=== PATIENT | female | born 1945 | race Caucasian/White ===

== ENCOUNTER → 2016-05-18 | Outpatient (CLI) | payer BC ==
[~2016-05-18] VITALS: Ht 152.4 cm; Wt 65.8 kg
[~2016-05-18] MED LIST: ASPI1TAB24 PO; CALC600T57 PO; LETR2.5T PO; LIDOCAINE 2% INJ 100 MG/5 ML SDV (FOR ANES.) As Ordered ONE; LISI-538 PO; LOVA40TA PO; NS 1,000 ML IV SCH; PRIL20CA9 PO; PROPOFOL 200 MG/20 ML VIAL As Ordered ONE; TRIA37.53 PO; VITA200016 PO; ePHEDrine SULFATE 25 MG/5 ML(5MG/ML) SYRINGE As Ordered ONE
--- NOTE | 2016-05-18 12:29 | ROOR ---
Patient Name: Sandra Riggs Procedure Date: 05/18/2016 12:06 PM Date of : 1945 Age: 70 Room: [facility] Gender: Female Note Status: Finalized Procedure: Colonoscopy to Cecum Indications: Screening for colorectal malignant neoplasm Providers: Te Calzada MD Referring MD: New George MD Requesting Provider: Medicines: Monitored Anesthesia Care Complications: No immediate complications. Procedure: Pre-Anesthesia Assessment: - The heart rate, respiratory rate, oxygen saturations, blood pressure, adequacy of pulmonary ventilation, and response to care were monitored throughout the procedure. The Colonoscope was introduced through the anus and advanced to the cecum, identified by appendiceal orifice and ileocecal valve. The colonoscopy was performed without difficulty. The patient tolerated the procedure well. The quality of the bowel preparation was excellent. Findings: The perianal and digital rectal examinations were normal. Non-bleeding internal hemorrhoids were found during retroflexion. The hemorrhoids were small and Grade I (internal hemorrhoids that do not prolapse). Multiple small and large-mouthed diverticula were found in the recto-sigmoid colon, sigmoid colon and descending colon. The exam was otherwise without abnormality on direct and retroflexion views. Impression: - Non-bleeding internal hemorrhoids. - Diverticulosis in the recto-sigmoid colon, in the sigmoid colon and in the descending colon. - The examination was otherwise normal on direct and retroflexion views. - No specimens collected. - The exam was otherwise normal to the cecum. Recommendation: - Patient has a contact number available for emergencies. The signs and symptoms of potential delayed complications were discussed with the patient. Return to normal activities tomorrow. Written discharge instructions were provided to the patient. - High fiber diet. - Discharge patient to home. - Continue present medications. - Repeat colonoscopy is not recommended for screening purposes. - Return to referring physician. - The findings and recommendations were discussed with the patient's family. Te Calzada MD Te Calzada MD 05/18/2016 12:29:13 PM This report has been signed electronically. Number of Addenda: 0 Note Initiated On: 05/18/2016 12:06 PM Estimated Blood Loss: Estimated blood loss: none.
[2016-05-18 12:55] VITALS: BP 114/56
== END ==
LOC: M OPP 11:34
PROVIDERS: ATTEND Internal Medicine Gastroenterology
DX: Z12.11 Encounter for screening for malignant neoplasm of colon (principal); K64.0 First degree hemorrhoids; K57.30 Diverticulosis of large intestine without perforation or abscess without bleeding; I10 Essential (primary) hypertension; E78.00 Pure hypercholesterolemia, unspecified; K21.9 Gastro-esophageal reflux disease without esophagitis; M54.9 Dorsalgia, unspecified; M54.2 Cervicalgia; Z85.3 Personal history of malignant neoplasm of breast; Z79.82 Long term (current) use of aspirin; Z79.899 Other long term (current) drug therapy; Z88.8 Allergy status to other drugs, medicaments and biological substances; Z88.5 Allergy status to narcotic agent
CPT/HCPCS: 99156; 99157; G0121

== ENCOUNTER → 2016-05-25 | Outpatient (CLI) | payer BC ==
[~2016-05-25] MED LIST changes: -LIDOCAINE 2% INJ 100 MG/5 ML SDV (FOR ANES.) As Ordered ONE; -NS 1,000 ML IV SCH; -PROPOFOL 200 MG/20 ML VIAL As Ordered ONE; -ePHEDrine SULFATE 25 MG/5 ML(5MG/ML) SYRINGE As Ordered ONE
--- NOTE | 2016-05-25 09:18 | REPMRS ---
Patient History The patient states she had a clinical breast exam in 2016. Patient is postmenopausal and has history of breast cancer at age 69. Family history of breast cancer in maternal cousin at age 50 or over. Malignant radio exam breast specimen, May 25, 2015. 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 Benign radio exam breast specimen of the right breast, April 30, 2015. Benign stereotatic loc for ea lesion of the right breast, April 30, 2015. Benign excisional biopsy of the right breast, 2000. Taking unspecified hormones for 5 months. Digital Mammo Screening Bilat: May 25, 2016 - Exam #: [id number] Bilateral CC and MLO view(s) were taken. Technologist: Lilliam Lopez Technologist Prior study comparison: December 08, 2015, right breast digital mammo diagnostic unilateral performed at [facility]. March 19, 2015, right breast digital mammo diagnostic unilateral performed at [facility]. FINDINGS: There are scattered fibroglandular densities. There is a mild amount of residual fibroglandular tissue which is fairly symmetric. There is no interval development of dominant mass, architectural distortion, or clustered microcalcification suggestive of malignancy. Large coarse benign appearing calcifications are present. ASSESSMENT: BI-RADS/ACR category 1 mammogram. Negative. Recommendation Routine screening mammogram in 1 year (for women over age 40). This mammogram was interpreted with the aid of an FDA-approved computer-aided dectection system. Electronically Signed By: George Curran MD 05/25/16 0918
== END ==
LOC: M RAD 08:36
PROVIDERS: ATTEND Family Medicine
DX: Z12.31 Encounter for screening mammogram for malignant neoplasm of breast (principal); Z78.0 Asymptomatic menopausal state; Z80.3 Family history of malignant neoplasm of breast; Z85.3 Personal history of malignant neoplasm of breast; Z92.29 Personal history of other drug therapy

== ENCOUNTER → 2016-12-02 | Outpatient (CLI) | payer BC ==
[~2016-12-02] MED LIST changes: +ASPI-161 PO; -ASPI1TAB24 PO; -LETR2.5T PO; +LETR2.5T2 PO; +VALI5TAB PO
[2016-12-02 08:49] LABS: MEAN CORPUSCULAR HEMOGLOBIN 29.7 pg (27.0-33.0); MEAN CORPUSCULAR HGB CONC 33.2 g/dl (32.0-36.5); MEAN CORPUSCULAR VOLUME 89.3 fl (80.0-96.0); RED CELL DISTRIBUTION WIDTH 12.7 % (11.5-14.5); WHITE BLOOD COUNT 6.5 K/mm3 (4.0-10.0)
[2016-12-02 09:01] LABS: ALBUMIN 3.6 GM/DL (3.2-5.2); ALBUMIN/GLOBULIN RATIO 1.06 (1.00-1.93); ALKALINE PHOSPHATASE 50 U/L (45-117); ALT/SGPT 18 U/L (12-78); ANION GAP 8 MEQ/L (8-16); AST/SGOT 12 U/L (15-37); BILIRUBIN,TOTAL 0.5 MG/DL (0.2-1.0); BLOOD UREA NITROGEN 17 MG/DL (7-18); CALCIUM LEVEL 9.6 MG/DL (8.8-10.2); CARBON DIOXIDE LEVEL 30 MEQ/L (21-32); CHLORIDE LEVEL 107 MEQ/L (98-107); CHOLESTEROL LEVEL 171 MG/DL (<200); CREATININE FOR GFR 0.79 MG/DL (0.55-1.02); GLOMERULAR FILTRATION RATE > 60.0 (>39); GLUCOSE, FASTING 88 MG/DL (83-110); POTASSIUM SERUM 4.3 MEQ/L (3.5-5.1); SODIUM LEVEL 145 MEQ/L (136-145); TRIGLYCERIDES LEVEL 146 MG/DL (<150)
== END ==
LOC: M LAB 07:32
PROVIDERS: ATTEND Family Medicine
DX: Z85.3 Personal history of malignant neoplasm of breast (principal); E78.2 Mixed hyperlipidemia; M81.0 Age-related osteoporosis without current pathological fracture; E55.9 Vitamin D deficiency, unspecified

== ENCOUNTER → 2017-02-20 | Outpatient (CLI) | payer BC ==
--- NOTE | 2017-02-21 09:49 | DEXA ---
AP SPINE L1 - L4 1.316 1.0 2.7 LT FEMUR TOTAL 0.819 -1.5 0.1 RT FEMUR TOTAL 0.770 -1.9 -0.3 TOTAL BODY TOTAL OTHER COMMENTS: Normal bone densitometry of the spine. There is low bone density of the left hip based on femoral neck T score -2.2. There is osteoporosis of the right hip based on femoral neck T score -2.7. There is degenerative change in the spine which may artificially elevate the BMD. The increased density of the spine does represent a significant change since . The increased density of the left hip does represent a significant change since 03/17/2016. The increased density of the right hip does represent a significant change. The density of the spine has increased 9.7% since the initial exam on 01/2001. The spine density has increased 8.2% since the most recent exam on 02/2016. The density of the left hip has decreased 6.8% since the initial exam on 2000. The density of the left hip has increased 1.5% since the most recent exam on 2015. The density of the right hip has decreased 8.1% since the initial exam on 2000. The density of the right hip has increased or 4.9% since the most recent exam on 02/2016. FOLLOW-UP: Recommendation for the next bone density exam: 2 years. ERIC
== END ==
LOC: M WHC 07:58
PROVIDERS: ATTEND Nurse Practitioner Family
DX: Z13.820 Encounter for screening for osteoporosis (principal); M85.9 Disorder of bone density and structure, unspecified

== ENCOUNTER → 2017-04-14 | Outpatient (REF) | payer BC | LOC: M SFHCWAGY 14:53 | DX: Z12.4 Encounter for screening for malignant neoplasm of cervix (principal) | CPT/HCPCS: G0123 ==

== ENCOUNTER → 2017-05-26 | Outpatient (CLI) | payer BC | LOC: M RAD 10:50 | DX: Z12.31 Encounter for screening mammogram for malignant neoplasm of breast (principal) | CPT/HCPCS: 77067 ==

== ENCOUNTER → 2017-12-04 | Outpatient (CLI) | payer BC ==
[2017-12-04 07:46] LABS: HEMATOCRIT 36.2 % (36.0-47.0); HEMOGLOBIN 11.8 g/dl (12.0-15.5); MEAN CORPUSCULAR HEMOGLOBIN 28.6 pg (27.0-33.0); MEAN CORPUSCULAR HGB CONC 32.6 g/dl (32.0-36.5); MEAN CORPUSCULAR VOLUME 87.7 fl (80.0-96.0); PLATELET COUNT, AUTOMATED 270 10^3/uL (150-450); RED BLOOD COUNT 4.13 10^6/uL (4.00-5.40); RED CELL DISTRIBUTION WIDTH 13.2 % (11.5-14.5); WHITE BLOOD COUNT 6.2 10^3/uL (4.0-10.0)
[2017-12-04 08:14] LABS: ALBUMIN 3.7 GM/DL (3.2-5.2); ALBUMIN/GLOBULIN RATIO 1.06 (1.00-1.93); ALKALINE PHOSPHATASE 44 U/L (45-117); ALT/SGPT 19 U/L (12-78); ANION GAP 12 MEQ/L (8-16); AST/SGOT 15 U/L (7-37); BILIRUBIN,TOTAL 0.4 MG/DL (0.2-1.0); BLOOD UREA NITROGEN 17 MG/DL (7-18); CALCIUM LEVEL 9.8 MG/DL (8.8-10.2); CARBON DIOXIDE LEVEL 26 MEQ/L (21-32); CHLORIDE LEVEL 106 MEQ/L (98-107); CHOLESTEROL LEVEL 155 MG/DL (<200); CHOLESTEROL RISK RATIO 2.767 (<5); GLOMERULAR FILTRATION RATE > 60.0 (>39); GLUCOSE, FASTING 88 MG/DL (70-100); HDL CHOLESTEROL 56 MG/DL (>40); LDL CHOLESTEROL 73 MG/DL (<100); NON-HDL-C 99 MG/DL; POTASSIUM SERUM 3.9 MEQ/L (3.5-5.1); SODIUM LEVEL 144 MEQ/L (136-145); TOTAL PROTEIN 7.2 GM/DL (6.4-8.2); TRIGLYCERIDES LEVEL 130 MG/DL (<150)
== END ==
LOC: M LAB 06:52
DX: K21.0 Gastro-esophageal reflux disease with esophagitis (principal); I10 Essential (primary) hypertension; E78.2 Mixed hyperlipidemia
CPT/HCPCS: 80053

== ENCOUNTER → 2018-02-16 | Outpatient (REF) | payer BC | LOC: M SFHCPLAZ 17:41 | DX: D23.39 Other benign neoplasm of skin of other parts of face (principal) | CPT/HCPCS: 88305 ==

== ENCOUNTER → 2018-02-21 | Outpatient (CLI) | payer BC | LOC: M WHC 10:26 | DX: M81.0 Age-related osteoporosis without current pathological fracture (principal); M85.852 Other specified disorders of bone density and structure, left thigh | CPT/HCPCS: 77080 ==

== ENCOUNTER → 2018-05-28 | Outpatient (CLI) | payer BC ==
[~2018-05-28] MED LIST changes: +ALEN70TA57 OR
--- NOTE | 2018-05-28 14:29 | REPMRS ---
Patient History The patient states she had a clinical breast exam in 2018. Family history of breast cancer at age 50 or over in maternal cousin. Malignant radio exam breast specimen, May 25, 2015. 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 Benign radio exam breast specimen of the right breast, April 30, 2015. Benign stereotatic loc for ea lesion of the right breast, April 30, 2015. Benign excisional biopsy of the right breast, 2000. Taking tamoxifen for 1 year. Taking unspecified hormones for 5 months. Digital Mammo Screening Bilat: May 28, 2018 - Exam #: [id number] Bilateral CC and MLO view(s) were taken. Technologist: Desirae Ventura, Technologist Prior study comparison: May 26, 2017, bilateral digital mammo screening bilat performed at [facility]. May 25, 2016, bilateral digital mammo screening bilat performed at [facility]. FINDINGS: There are scattered fibroglandular densities. There has been no change in the appearance of the mammogram from the prior studies. There is a moderate amount of residual fibroglandular tissue which is fairly symmetric. There is no interval development of dominant mass, architectural distortion, or clustered microcalcification suggestive of malignancy. There are scattered, small, benign calcifications of doubtful clinical significance. Large coarse benign appearing calcifications are present. There are benign arterial calcifications noted. 3-D tomosynthesis shows no additional findings. No significant changes when compared with prior studies. Assessment: BI-RADS/ACR category 2 mammogram. Benign Findings. Recommendation Routine screening mammogram in 1 year (for women over age 40). This mammogram was interpreted with the aid of an FDA-approved computer-aided dectection system. A. Negative x-ray reports should not delay biopsy if a dominant or clinically suspicious mass is present. B. Four to eight percent of cancers are not identified by mammography. C. Adenosis and dense breast may obscure an underlying neoplasm. Electronically Signed By: Lasha Nur MD 05/28/18 [id number]
== END ==
LOC: M RAD 10:22
PROVIDERS: ATTEND Nurse Practitioner Family
DX: Z12.31 Encounter for screening mammogram for malignant neoplasm of breast (principal); M81.0 Age-related osteoporosis without current pathological fracture; Z80.3 Family history of malignant neoplasm of breast; Z85.3 Personal history of malignant neoplasm of breast

== ENCOUNTER → 2018-06-18 | Outpatient (CLI) | payer BC ==
[2018-06-18 08:11] LABS: HEMATOCRIT 37.5 % (36.0-47.0); HEMOGLOBIN 12.1 g/dl (12.0-15.5); MEAN CORPUSCULAR HEMOGLOBIN 28.1 pg (27.0-33.0); MEAN CORPUSCULAR HGB CONC 32.3 g/dl (32.0-36.5); PLATELET COUNT, AUTOMATED 269 10^3/uL (150-450); RED BLOOD COUNT 4.31 10^6/uL (4.00-5.40); WHITE BLOOD COUNT 6.4 10^3/uL (4.0-10.0)
[2018-06-18 11:30] LABS: PERCENT SATURATION 14.5 % (13.2-45.0)
== END ==
LOC: M LAB 07:15
PROVIDERS: ATTEND Family Medicine
DX: D64.9 Anemia, unspecified (principal)

== ENCOUNTER → 2018-12-31 | Outpatient (CLI) | payer BC ==
[~2018-12-31] MED LIST changes: -ALEN70TA57 OR; +ALEN70TA74 OR; +MULT1TAB50 PO; +TRIA1CR80 TOP
[2018-12-31 08:14] LABS: HEMATOCRIT 37.2 % (36.0-47.0); HEMOGLOBIN 11.8 g/dl (12.0-15.5); MEAN CORPUSCULAR HEMOGLOBIN 28.3 pg (27.0-33.0); MEAN CORPUSCULAR HGB CONC 31.7 g/dl (32.0-36.5); MEAN CORPUSCULAR VOLUME 89.2 fl (80.0-96.0); PLATELET COUNT, AUTOMATED 265 10^3/uL (150-450); RED BLOOD COUNT 4.17 10^6/uL (4.00-5.40); WHITE BLOOD COUNT 5.7 10^3/uL (4.0-10.0)
[2018-12-31 08:36] LABS: ALBUMIN 3.6 GM/DL (3.2-5.2); BILIRUBIN,TOTAL 0.3 MG/DL (0.2-1.0); CALCIUM LEVEL 10.1 MG/DL (8.8-10.2); CREATININE FOR GFR 1.16 MG/DL (0.55-1.30); GLOMERULAR FILTRATION RATE 48.6 (>39); POTASSIUM SERUM 4.2 MEQ/L (3.5-5.1); TOTAL PROTEIN 6.9 GM/DL (6.4-8.2)
== END ==
LOC: M LAB 06:37
PROVIDERS: ATTEND Family Medicine
DX: E61.1 Iron deficiency (principal); I10 Essential (primary) hypertension; E78.2 Mixed hyperlipidemia

== ENCOUNTER → 2019-02-28 | Outpatient (CLI) | payer BC | LOC: M WHC 10:29 | PROVIDERS: ATTEND Nurse Practitioner Family | DX: M81.0 Age-related osteoporosis without current pathological fracture (principal) ==

== ENCOUNTER → 2019-03-11 | Outpatient (REF) | payer BC | LOC: M LAB REF 18:19 | PROVIDERS: ATTEND Dermatology | DX: L81.9 Disorder of pigmentation, unspecified (principal) ==

== ENCOUNTER → 2019-05-30 | Outpatient (CLI) | payer BC ==
--- NOTE | 2019-05-30 11:52 | REPMRS ---
Patient History The patient states she had a clinical breast exam in 2018. Family history of breast cancer at age 50 or over in maternal cousin. Malignant radio exam breast specimen, May 25, 2015. 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 Benign radio exam breast specimen of the right breast, April 30, 2015. Benign stereotatic loc for ea lesion of the right breast, April 30, 2015. Benign excisional biopsy of the right breast, 2000. Taking tamoxifen for 1 year. Taking unspecified hormones for 5 months. Digital Woman Screen Mammo: May 30, 2019 - Exam #: [id number] Bilateral CC and MLO view(s) were taken. Technologist: Katrina Verduzco, Technologist Prior study comparison: May 28, 2018, bilateral digital mammo screening bilat, performed at [facility]. May 26, 2017, bilateral digital mammo screening bilat, performed at [facility]. May 25, 2016, bilateral digital mammo screening bilat, performed at [facility]. FINDINGS: There are scattered fibroglandular densities. There are stable post treatment changes in the right breast. There has been no change in the appearance of the mammogram from the prior studies. There is a mild amount of scattered fibroglandular density which is fairly symmetric. There is no interval development of dominant mass, architectural distortion, or grouped microcalcification suggestive of malignancy. 3-D tomosynthesis shows no additional findings. Assessment: BI-RADS/ACR category 2 mammogram. Benign Findings. Recommendation Routine screening mammogram of both breasts in 1 year (for women over age 40). This mammogram was interpreted with the aid of an FDA-approved computer-aided dectection system. Electronically Signed By: Kiet Warner MD 05/30/19 [id number]
== END ==
LOC: M WHC 10:49
PROVIDERS: ATTEND Nurse Practitioner Family
DX: Z12.31 Encounter for screening mammogram for malignant neoplasm of breast (principal); Z85.3 Personal history of malignant neoplasm of breast; Z80.3 Family history of malignant neoplasm of breast

== ENCOUNTER → 2020-02-11 | Outpatient (REF) | payer BC | LOC: M LAB REF 13:48 | PROVIDERS: ATTEND Dermatology | DX: D49.2 Neoplasm of unspecified behavior of bone, soft tissue, and skin (principal) ==

== ENCOUNTER → 2020-02-12 | Outpatient (CLI) | payer BC ==
[2020-02-12 07:46] LABS: ALBUMIN 3.8 GM/DL (3.2-5.2); ALT/SGPT 22 U/L (12-78); BILIRUBIN,TOTAL 0.4 MG/DL (0.2-1.0); BLOOD UREA NITROGEN 19 MG/DL (7-18); CALCIUM LEVEL 10.2 MG/DL (8.8-10.2); CARBON DIOXIDE LEVEL 32 MEQ/L (21-32); CHLORIDE LEVEL 106 MEQ/L (98-107); CHOLESTEROL LEVEL 198 MG/DL (<200); CHOLESTEROL RISK RATIO 3.142 (<5); CREATININE FOR GFR 0.93 MG/DL (0.55-1.30); GLOMERULAR FILTRATION RATE > 60.0 (>39); GLUCOSE, FASTING 93 MG/DL (70-100); HDL CHOLESTEROL 63 MG/DL (>40); LDL CHOLESTEROL 110 MG/DL (<100); NON-HDL-C 135 MG/DL; POTASSIUM SERUM 3.8 MEQ/L (3.5-5.1); SODIUM LEVEL 141 MEQ/L (136-145); TOTAL PROTEIN 7.2 GM/DL (6.4-8.2); TRIGLYCERIDES LEVEL 123 MG/DL (<150)
== END ==
LOC: M LAB 06:40
PROVIDERS: ATTEND Family Medicine
DX: E78.5 Hyperlipidemia, unspecified (principal); I11.9 Hypertensive heart disease without heart failure

== ENCOUNTER → 2020-06-01 | Outpatient (CLI) | payer BC ==
[~2020-06-01] MED LIST changes: -ALEN70TA74 OR; +ALEN70TA82 OR; -LISI-538 PO; +LISI20TA33 PO
--- NOTE | 2020-06-01 12:33 | REPMRS ---
Patient History The patient states she had a clinical breast exam in March 2020. Family history of breast cancer at age 50 or over in maternal cousin. Malignant radio exam breast specimen, May 25, 2015. 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 Benign radio exam breast specimen of the right breast, April 30, 2015. Benign stereotatic loc for ea lesion of the right breast, April 30, 2015. Benign excisional biopsy of the right breast, 2000. Taking tamoxifen for 1 year. Taking unspecified hormones for 5 months. Digital Woman Screen Mammo: June 01, 2020 - Exam #: [id number] Bilateral CC and MLO view(s) were taken. Technologist: Lilliam Lopez, Technologist Prior study comparison: May 30, 2019, bilateral digital woman screen mammo performed at [facility]. May 28, 2018, bilateral digital mammo screening bilat, performed at [facility]. May 26, 2017, bilateral digital mammo screening bilat, performed at [facility]. FINDINGS: The breast tissue is heterogeneously dense. This may lower the sensitivity of mammography. The Volpara volumetric breast density category is: C. There is a stable area of fibrosis in the right breast. Stable calcifications are noted on the left. There is a moderate amount of heterogeneously dense fibroglandular tissue which is fairly symmetric. There is no interval development of dominant mass, architectural distortion, or grouped microcalcification typical of malignancy. There has been no change in the appearance of the mammogram from the prior studies. 3-D tomosynthesis shows no additional findings. Assessment: BI-RADS/ACR category 2 mammogram. Benign Findings. Recommendation Routine screening mammogram of both breasts in 1 year (for women over age 40). This mammogram was interpreted with the aid of an FDA-approved computer-aided dectection system. Electronically Signed By: Kiet Warner MD 06/01/20 [id number]
== END ==
LOC: M WHC 10:25
PROVIDERS: ATTEND Internal Medicine Medical Oncology
DX: Z12.31 Encounter for screening mammogram for malignant neoplasm of breast (principal); Z85.3 Personal history of malignant neoplasm of breast; Z80.3 Family history of malignant neoplasm of breast; Z79.890 Hormone replacement therapy

== ENCOUNTER → 2021-03-08 | Outpatient (CLI) | payer BC | LOC: M WHC 12:42 | PROVIDERS: ATTEND Internal Medicine Medical Oncology | DX: Z12.31 Encounter for screening mammogram for malignant neoplasm of breast (principal); M81.0 Age-related osteoporosis without current pathological fracture ==

== ENCOUNTER → 2021-03-24 | Outpatient (CLI) | payer BC ==
[2021-03-24 09:23] LABS: ALBUMIN 3.6 GM/DL (3.2-5.2); ALT/SGPT 22 U/L (12-78); BILIRUBIN,TOTAL 0.4 MG/DL (0.2-1.0); BLOOD UREA NITROGEN 25 MG/DL (7-18); CALCIUM LEVEL 10.2 MG/DL (8.8-10.2); CARBON DIOXIDE LEVEL 27 MEQ/L (21-32); CHLORIDE LEVEL 108 MEQ/L (98-107); CHOLESTEROL LEVEL 186 MG/DL (<200); FREE T4 0.93 NG/DL (0.76-1.46); GLOMERULAR FILTRATION RATE > 60.0 (>39); GLUCOSE, FASTING 88 MG/DL (70-100); HDL CHOLESTEROL 62 MG/DL (>40); LDL CHOLESTEROL 98 MG/DL (<100); NON-HDL-C 124 MG/DL; POTASSIUM SERUM 4.1 MEQ/L (3.5-5.1); SODIUM LEVEL 141 MEQ/L (136-145); TOTAL PROTEIN 6.8 GM/DL (6.4-8.2); TRIGLYCERIDES LEVEL 129 MG/DL (<150)
[2021-03-24 10:09] LABS: TOTAL 25(OH) VITAMIN D 47.3 NG/ML (30.0-100.0)
== END ==
LOC: M LAB 07:16
PROVIDERS: ATTEND Family Medicine
DX: I11.9 Hypertensive heart disease without heart failure (principal)

== ENCOUNTER → 2021-05-31 | Outpatient (REF) | payer BC | LOC: M PLALAB 10:09 | PROVIDERS: ATTEND Specialist | DX: Z01.419 Encounter for gynecological examination (general) (routine) without abnormal findings (principal) ==

== ENCOUNTER → 2021-06-07 | Outpatient (CLI) | payer BC | LOC: M WHC 08:20 | PROVIDERS: ATTEND Internal Medicine Medical Oncology | DX: Z12.31 Encounter for screening mammogram for malignant neoplasm of breast (principal); R92.2 Inconclusive mammogram; M81.0 Age-related osteoporosis without current pathological fracture; Z80.3 Family history of malignant neoplasm of breast; Z79.890 Hormone replacement therapy; Z79.810 Long term (current) use of selective estrogen receptor modulators (SERMs) ==

== ENCOUNTER → 2022-03-22 | Outpatient (REF) | payer BC ==
[~2022-03-22] MED LIST changes: -TRIA37.53 PO; +TRIA37.577 PO
[2022-03-23 13:39] LABS: HEMATOCRIT 40.2 % (36.0-47.0); HEMOGLOBIN 12.9 g/dl (12.0-15.5); MEAN CORPUSCULAR HEMOGLOBIN 29.1 pg (27.0-33.0); MEAN CORPUSCULAR HGB CONC 32.1 g/dl (32.0-36.5); MEAN CORPUSCULAR VOLUME 90.7 fl (80.0-96.0); PLATELET COUNT, AUTOMATED 329 10^3/uL (150-450); RED BLOOD COUNT 4.43 10^6/uL (4.00-5.40); WHITE BLOOD COUNT 7.5 10^3/uL (4.0-10.0)
[2022-03-23 14:07] LABS: ALBUMIN 4.1 G/DL (3.2-5.2); ALKALINE PHOSPHATASE 52 U/L (46-116); ALT/SGPT 17 U/L (7.0-40); AST/SGOT 25 U/L (<34); BILIRUBIN,TOTAL 0.3 MG/DL (0.3-1.2); BLOOD UREA NITROGEN 18 MG/DL (9-23); CALCIUM LEVEL 11.3 MG/DL (8.3-10.6); CARBON DIOXIDE LEVEL 30 MMOL/L (20-31); CHLORIDE LEVEL 101 MMOL/L (98-107); CHOLESTEROL LEVEL 179 MG/DL (<200); CHOLESTEROL RISK RATIO 2.54 (<5); CREATININE FOR GFR 0.78 MG/DL (0.55-1.30); GLOMERULAR FILTRATION RATE > 60.0 (>39); GLUCOSE, FASTING 78 MG/DL (74-106); HDL CHOLESTEROL 70.4 MG/DL (>40); LDL CHOLESTEROL 84.4 MG/DL (<100); NON-HDL-C 109 MG/DL; POTASSIUM SERUM 5.6 MMOL/L (3.5-5.1); SODIUM LEVEL 140 MMOL/L (136-145); THYROID STIMULATING HORMONE 2.682 uIU/ML (0.55-4.78); TOTAL 25(OH) VITAMIN D 50.3 NG/ML (20.0-100.0); TOTAL PROTEIN 7.7 G/DL (5.7-8.2); TRIGLYCERIDES LEVEL 121 MG/DL (<150)
[2022-03-23 14:41] LABS: HEMOGLOBIN A1c 5.2 % (4.0-6.0)
== END ==
LOC: M SFHCADAM 15:15
PROVIDERS: ATTEND Family Medicine
DX: I11.9 Hypertensive heart disease without heart failure (principal); E78.2 Mixed hyperlipidemia; F41.1 Generalized anxiety disorder; M83.9 Adult osteomalacia, unspecified; E55.9 Vitamin D deficiency, unspecified; E88.81 Metabolic syndrome and other insulin resistance

== ENCOUNTER → 2022-06-09 | Outpatient (CLI) | payer BC | LOC: M WHC 13:20 | PROVIDERS: ATTEND Internal Medicine Medical Oncology | DX: Z12.31 Encounter for screening mammogram for malignant neoplasm of breast (principal); Z85.3 Personal history of malignant neoplasm of breast ==

== ENCOUNTER → 2022-06-14 | Outpatient (CLI) | payer BC ==
[2022-06-14 12:10] LABS: PTH INTACT 81.4 PG/ML (18.5-88.0)
== END ==
LOC: M LAB 10:32
PROVIDERS: ATTEND Family Medicine
DX: E83.52 Hypercalcemia (principal)

== ENCOUNTER → 2022-07-19 | Outpatient (CLI) | payer BC ==
[2022-07-19 17:50] LABS: BLOOD UREA NITROGEN 19 MG/DL (9-23); CALCIUM LEVEL 10.6 MG/DL (8.3-10.6); CARBON DIOXIDE LEVEL 31 MMOL/L (20-31); CHLORIDE LEVEL 104 MMOL/L (98-107); CREATININE FOR GFR 0.85 MG/DL (0.55-1.30); GLOMERULAR FILTRATION RATE > 60.0 (>39); GLUCOSE, FASTING 76 MG/DL (74-106); PHOSPHORUS LEVEL 3.5 MG/DL (2.4-5.1); POTASSIUM SERUM 3.7 MMOL/L (3.5-5.1); SODIUM LEVEL 138 MMOL/L (136-145)
== END ==
LOC: M LAB 16:25
PROVIDERS: ATTEND Family Medicine
DX: E83.52 Hypercalcemia (principal)

== ENCOUNTER → 2022-08-10 | Outpatient (REF) | payer BC | LOC: M SFHCWAGY 10:26 | PROVIDERS: ATTEND Specialist | DX: Z01.419 Encounter for gynecological examination (general) (routine) without abnormal findings (principal) ==

== ENCOUNTER 2023-01-11 07:59 | Outpatient (RCR) | payer BC | END 2023-01-17 | LOC: M PT 07:59 | PROVIDERS: ATTEND Family Medicine | DX: M54.31 Sciatica, right side (principal) ==

== ENCOUNTER 2023-02-08 07:41 | Outpatient (RCR) | payer BC | END 2023-02-16 | LOC: M PT 07:41 | PROVIDERS: ATTEND Family Medicine | DX: M54.31 Sciatica, right side (principal) ==

== ENCOUNTER → 2023-03-10 | Outpatient (CLI) | payer BC | LOC: M WHC 10:36 | PROVIDERS: ATTEND Internal Medicine Medical Oncology | DX: M81.0 Age-related osteoporosis without current pathological fracture (principal) ==

== ENCOUNTER → 2023-03-30 | Outpatient (CLI) | payer MEDICARE ==
[2023-03-30 09:37] LABS: HEMATOCRIT 40.1 % (36.0-47.0); MEAN CORPUSCULAR HEMOGLOBIN 28.7 pg (27.0-33.0); MEAN CORPUSCULAR HGB CONC 32.4 g/dl (32.0-36.5); MEAN CORPUSCULAR VOLUME 88.5 fl (80.0-96.0); PLATELET COUNT, AUTOMATED 291 10^3/uL (150-450); RED BLOOD COUNT 4.53 10^6/uL (4.00-5.40); WHITE BLOOD COUNT 6.7 10^3/uL (4.0-10.0)
[2023-03-30 09:53] LABS: ALBUMIN 3.8 G/DL (3.2-5.2); ALKALINE PHOSPHATASE 50 U/L (46-116); ALT/SGPT 13 U/L (7.0-40); AST/SGOT 12 U/L (<34); BILIRUBIN,TOTAL 0.5 MG/DL (0.3-1.2); BLOOD UREA NITROGEN 25 MG/DL (9-23); CALCIUM LEVEL 10.6 MG/DL (8.3-10.6); CARBON DIOXIDE LEVEL 28 MMOL/L (20-31); CHLORIDE LEVEL 107 MMOL/L (98-107); CHOLESTEROL LEVEL 201 MG/DL (<200); CHOLESTEROL RISK RATIO 2.89 (<5); CREATININE FOR GFR 0.87 MG/DL (0.55-1.30); GLOMERULAR FILTRATION RATE > 60.0 (>39); GLUCOSE, FASTING 86 MG/DL (74-106); HDL CHOLESTEROL 69.5 MG/DL (>40); LDL CHOLESTEROL 111.1 MG/DL (<100); NON-HDL-C 131.5 MG/DL; POTASSIUM SERUM 4.1 MMOL/L (3.5-5.1); SODIUM LEVEL 142 MMOL/L (136-145); TOTAL PROTEIN 6.9 G/DL (5.7-8.2); TRIGLYCERIDES LEVEL 102 MG/DL (<150)
[2023-03-30 10:28] LABS: HEMOGLOBIN A1c 5.3 % (4.0-6.0)
== END ==
LOC: M LAB 08:41
PROVIDERS: ATTEND Family Medicine
DX: I11.9 Hypertensive heart disease without heart failure (principal)

== ENCOUNTER → 2023-06-13 | Outpatient (CLI) | payer MEDICARE ==
[~2023-06-13] MED LIST changes: -ASPI-161 PO; +ASPI-615 PO; +MELO15TA28 PO
== END ==
LOC: M WHC 10:06
PROVIDERS: ATTEND Internal Medicine Medical Oncology
DX: Z12.31 Encounter for screening mammogram for malignant neoplasm of breast (principal)

== ENCOUNTER → 2023-11-28 | Outpatient (REF) | payer MEDICARE ==
[2023-11-30 15:18] LABS: HPV APTIMA Not Detected (Not Detected)
== END ==
LOC: M SFHCWAGY 13:26
PROVIDERS: ATTEND Specialist
DX: Z12.4 Encounter for screening for malignant neoplasm of cervix (principal); N95.2 Postmenopausal atrophic vaginitis
CPT/HCPCS: 87624; G0123

== ENCOUNTER → 2023-12-01 | Outpatient (REF) | payer MEDICARE ==
[2023-12-01 13:11] LABS: HEMATOCRIT 38.7 % (36.0-47.0); HEMOGLOBIN 12.4 g/dl (12.0-15.5); MEAN CORPUSCULAR HEMOGLOBIN 28.9 pg (27.0-33.0); MEAN CORPUSCULAR VOLUME 90.2 fl (80.0-96.0); PLATELET COUNT, AUTOMATED 285 10^3/uL (150-450); RED BLOOD COUNT 4.29 10^6/uL (4.00-5.40); WHITE BLOOD COUNT 7.8 10^3/uL (4.0-10.0)
[2023-12-01 13:17] LABS: ALBUMIN 3.9 G/DL (3.2-5.2); ALKALINE PHOSPHATASE 42 U/L (46-116); ALT/SGPT 14 U/L (7.0-40); AST/SGOT 10 U/L (<34); BILIRUBIN,TOTAL 0.4 MG/DL (0.3-1.2); BLOOD UREA NITROGEN 22 MG/DL (9-23); CALCIUM LEVEL 10.6 MG/DL (8.3-10.6); CARBON DIOXIDE LEVEL 28 MMOL/L (20-31); CHLORIDE LEVEL 105 MMOL/L (98-107); CREATININE FOR GFR 0.92 MG/DL (0.55-1.30); GLOMERULAR FILTRATION RATE > 60.0 (>39); GLUCOSE, FASTING 83 MG/DL (74-106); POTASSIUM SERUM 4.3 MMOL/L (3.5-5.1); SODIUM LEVEL 139 MMOL/L (136-145); TOTAL PROTEIN 6.9 G/DL (5.7-8.2)
[2023-12-01 13:18] LABS: FREE T4 1.12 NG/DL (0.89-1.76); THYROID STIMULATING HORMONE 1.815 uIU/ML (0.55-4.78)
== END ==
LOC: M SFHCADAM 09:32
PROVIDERS: ATTEND Family Medicine
DX: Z00.00 Encounter for general adult medical examination without abnormal findings (principal); I11.9 Hypertensive heart disease without heart failure; Z13.29 Encounter for screening for other suspected endocrine disorder

== ENCOUNTER → 2023-12-22 | Outpatient (REF) | payer MEDICARE | LOC: M LAB REF 15:46 | PROVIDERS: ATTEND Surgery | DX: L72.0 Epidermal cyst (principal) ==

== ENCOUNTER → 2024-06-14 | Outpatient (CLI) | payer MEDICARE | LOC: M WHC 13:04 | PROVIDERS: ATTEND Internal Medicine Medical Oncology | DX: Z12.31 Encounter for screening mammogram for malignant neoplasm of breast (principal) ==

== ENCOUNTER → 2024-10-04 | Outpatient (CLI) | payer MEDICARE ==
[~2024-10-04] MED LIST changes: +CENT1TAB PO; +LOTI10DR OP; +SYST0.4D2 OP; +TOBRSUS8
== END ==
LOC: M RAD 09:11
PROVIDERS: ATTEND Internal Medicine Medical Oncology
DX: M81.0 Age-related osteoporosis without current pathological fracture (principal); Z85.3 Personal history of malignant neoplasm of breast

== ENCOUNTER → 2024-12-10 | Outpatient (REF) | payer MEDICARE ==
[2024-12-10 19:17] LABS: ALT/SGPT 20.0 U/L (7.0-40); AST/SGOT 20.0 U/L (<34); CALCIUM LEVEL 10.8 MG/DL (8.3-10.6); CARBON DIOXIDE LEVEL 30.0 MMOL/L (20-31); CHLORIDE LEVEL 104.0 MMOL/L (98-107); CHOLESTEROL LEVEL 209.0 MG/DL (<200); CHOLESTEROL RISK RATIO 3.13 (<5); CREATININE FOR GFR 0.93 MG/DL (0.55-1.30); GLOMERULAR FILTRATION RATE 62.1 (>32); LDL CHOLESTEROL 104.4 MG/DL (<100); NON-HDL-C 142.4 MG/DL; POTASSIUM SERUM 4.2 MMOL/L (3.5-5.1); SODIUM LEVEL 142.0 MMOL/L (136-145); TRIGLYCERIDES LEVEL 190.0 MG/DL (<150)
[2024-12-10 19:18] LABS: FREE T4 1.08 NG/DL (0.89-1.76)
[2024-12-10 19:19] LABS: PLATELET COUNT, AUTOMATED 312 10^3/uL (150-450)
[2024-12-10 19:57] LABS: ESTIMATED AVERAGE GLUCOSE 114.0 MG/DL (60-110)
== END ==
LOC: M SFHCADAM 11:17
PROVIDERS: ATTEND Family Medicine
DX: E78.2 Mixed hyperlipidemia (principal); M75.51 Bursitis of right shoulder; Z13.1 Encounter for screening for diabetes mellitus; I11.9 Hypertensive heart disease without heart failure

== ENCOUNTER → 2025-02-27 | Outpatient (REF) | payer MEDICARE ==
[2025-03-01 14:18] LABS: HPV APTIMA Not Detected (Not Detected)
== END ==
LOC: M SFHCWAGY 13:06
PROVIDERS: ATTEND Specialist
DX: Z01.419 Encounter for gynecological examination (general) (routine) without abnormal findings (principal)
CPT/HCPCS: 87624; G0123